=== PATIENT | female | born 1990 | race Two or more races ===

== ENCOUNTER 2021-05-12 07:29 | Inpatient (IN) | payer OTHER ==
[~2021-05-12] VITALS: Ht 160 cm; Wt 3.2 kg
[2021-05-14] MEDS ORDERED: COLACE100 MG PO (11:11)
[2021-05-14] MEDS ORDERED: IBU800 MG PO (11:12)
[2021-05-14] MEDS ORDERED: SIMETHICONE125 M1 PO (11:12)
== END 2021-05-14 11:28 | disposition home or self-care (01) | DRG 785 ==
LOC: LDR 07:29 → O/R 07:29 → OB/GYN 07:29 → O/R 13:00 → OB/GYN 15:35
PROVIDERS: ADMIT Specialist; ATTEND Specialist
PROC: 0UB70ZZ Excision of Bilateral Fallopian Tubes, Open Approach (ICD-10-PCS; 2021-05-12)
PROC: 4A1HXFZ Monitoring of Products of Conception, Cardiac Rhythm, External Approach (ICD-10-PCS; 2021-05-12)
PROC: 10D00Z1 Extraction of Products of Conception, Low, Open Approach (ICD-10-PCS; principal; 2021-05-12 13:30)
DX: O34.211 Maternal care for low transverse scar from previous cesarean delivery (principal); O32.1XX0 Maternal care for breech presentation, not applicable or unspecified; Z30.2 Encounter for sterilization; Z37.0 Single live birth; Z3A.38 38 weeks gestation of pregnancy